=== PATIENT | female | born 1980 | race Caucasian/White ===

== ENCOUNTER 2017-07-19 00:55 | Emergency (ER) | payer OTHER ==
[~2017-07-19] VITALS: Ht 165.1 cm; Wt 127.0 kg
--- OUTSIDE RECORDS SUMMARY | ~2017-07-19 | XMS | Clinical Summary ---
Demographics + + + | Address | [address] | | | [place] [address] | + + + | Home Phone | | + + + | Preferred Language | Unknown | + + + | Marital Status | Single | + + + | Quaker Affiliation | Unknown | + + + | Race | White | + + + | Ethnic Group | Not or | + + + Author + + + | Author | [facility] | + + + | Organization | [facility] | + + + | Address | Unknown | + + + | Phone | Unavailable | + + + Support +------+ +---------+ + | Name | Relationship | Address | Phone | +------+ +---------+ + ECON | Unknown | | +------+ +---------+ + Care Team Providers + +------+ + | Care Rn Concurrent Review Name | Role | Phone | + +------+ + PP | Unavailable | + +------+ + Source Comments JESSE is fully live on both [facility] and [facility] Allergies + + + + + + | Active Allergy | Reactions | Severity | Noted | Comments | | | | | Date | | + + + + + + | Latex | | | 06/09/20 | | | | | | 11 | | + + + + + + | Hydrocodone-Acetamin | Pruritus | | 06/09/20 | | | ophen | | | 11 | | + + + + + + Current Medications No known medications Active Problems + + + | Problem | Noted Date | + + + | Osteoarthritis | 06/10/2011 | + + + | Facial swelling | 06/10/2011 | + + + Family History + + +------+ + | Medical History | Relation | Name | Comments | + + +------+ + | Additional Family | Father | | COPD/emphysema | | History | | | | + + +------+ + | Additional Family | Mother | | psoriasis vs dermatitis | | History | | | | + + +------+ + + +------+--------+ + | Relation | Name | Status | Comments | + +------+--------+ + | Father | | | | + +------+--------+ + | Mother | | | | + +------+--------+ + Social History + +-------+ +--------+------+ | Tobacco Use | Types | Packs/Day | Years | Date | | | | | Used | | + +-------+ +--------+------+ | Never Smoker | | | | | + +-------+ +--------+------+ + +---+---+---+ | Smokeless Tobacco: | | | | | Never Used | | | | + +---+---+---+ + + +---------+ + | Alcohol Use | Drinks/We | oz/Week | Comments | | | ek | | | + + +---------+ + | Yes | | | drinks 1 drink/week | + + +---------+ + + + + | Sex Assigned at | Date Recorded | | | | + + + | Not on file | | + + + Last Filed Vital Signs + + + + | Vital Sign | Reading | Time Taken | + + + + | Blood Pressure | 126/72 | 06/09/2011 9:29 AM PDT | + + + + | Pulse | 85 | 06/09/2011 9:29 AM PDT | + + + + | Temperature | - | - | + + + + | Respiratory Rate | - | - | + + + + | Oxygen Saturation | - | - | + + + + | Inhaled Oxygen | - | - | | Concentration | | | + + + + | Weight | 109.3 kg (241 lb) | 06/09/2011 9:29 AM PDT | + + + + | Height | 163.8 cm (5' 4.5") | 06/09/2011 9:29 AM PDT | + + + + | Body Mass Index | 40.73 | 06/09/2011 9:29 AM PDT | + + + + Plan of Treatment Not on file Results Not on filefrom Last 3 Months
[~2017-07-19 00:55] MED LIST: ACETAMINOPHEN325 M1 PO; DOC-Q-LACE100 MG PO; FERROUS SULFAT325 MG PO; IBUPROFEN800 MG PO; LANSOPRAZOLE30 MG PO; NORCO 5-325 TA1 EACH PO; PERCOCET 5-3251 EACH PO; PRENATAL FORMU1 EAC1 PO; PRILOSEC20 MG PO; PROMETHAZINE HC25 M1 PO; ZOFRAN4 MG PO
[2017-07-19] MEDS ORDERED: VENTOLIN HFA18 GM INH (01:20)
[2017-07-19] MEDS ORDERED: MULTI-VITAMIN1 EACH PO (01:21)
[2017-07-19] MEDS ORDERED: DICLOFENAC SODI75 MG PO (01:51)
[2017-07-19] MEDS ORDERED: ACETAMINOPHEN-1 EAC1 PO (01:51)
== END 2017-07-19 02:02 | disposition home or self-care (01) ==
LOC: ED 00:55
DX: S29.012A Strain of muscle and tendon of back wall of thorax, initial encounter (principal); K21.9 Gastro-esophageal reflux disease without esophagitis; X58.XXXA Exposure to other specified factors, initial encounter; Z88.5 Allergy status to narcotic agent; Z88.8 Allergy status to other drugs, medicaments and biological substances; Z79.899 Other long term (current) drug therapy
CPT/HCPCS: 71020; 81001; 99283

== ENCOUNTER 2018-10-30 08:04 | Emergency (ER) | payer OTHER ==
[~2018-10-30] VITALS: Ht 165.1 cm; Wt 127.0 kg
[~2018-10-30 08:04] MED LIST changes: +ACETAMINOPHEN-1 EAC1 PO; +DICLOFENAC SODI75 MG PO; +MULTI-VITAMIN1 EACH PO; +VENTOLIN HFA18 GM INH
== END 2018-10-30 09:08 | disposition home or self-care (01) ==
LOC: ED 08:04
DX: M25.511 Pain in right shoulder (principal); K21.9 Gastro-esophageal reflux disease without esophagitis; Z88.5 Allergy status to narcotic agent; Z88.8 Allergy status to other drugs, medicaments and biological substances; Z79.899 Other long term (current) drug therapy
CPT/HCPCS: 96372; 99283-25; J1885

== ENCOUNTER 2018-11-07 09:50 | Day surgery (SDC) | payer OTHER ==
[~2018-11-07] VITALS: Ht 165.1 cm; Wt 132.0 kg
[~2018-11-07 09:50] MED LIST changes: +GLIPIZIDE5 MG PO; +OMEPRAZOLE20 MG PO
[2018-11-07] MEDS ORDERED: VITAMIN D50000 UNI1 PO (10:14)
[2018-11-07] MEDS ORDERED: SENNA LAX8.6 MG PO (15:01)
[2018-11-07] MEDS ORDERED: OXYCODONE HCL5 MG PO (15:01)
[2018-11-07] MEDS ORDERED: NARCAN4 MG NAS (15:02)
[2018-11-07] MEDS ORDERED: GABAPENTIN300 MG PO (15:02)
--- NOTE | 2018-11-07 15:45 | NUR ---
11/07/18 1545 Мария Ray 1507 PT ARRIVED IN PACU SLEEPY. SLING PLACED ON R ARM BY OR STAFF. 1511 BLOOD SUGAR 174. ANESTHESIA AWARE. PT MOVING AROUND IN BED. REORIENTED TO PLACE. 1530 CRYO CUFF PLACED ON R SHOULDER. PT C/O SORE NECK ON R SIDE AND HARD TO BREATHE ON R SIDE OF ABD. SLOW DEEP BREATHS TAKEN. REASSURED PT. REPOSITIONED IN BED FOR COMFORT. PT STATES "I DID FEEL THIS WAY BEFORE SURGERY." 1545 PT RELAXED WITH NO C/O'S AT THIS TIME.
[2018-11-07] MEDS ORDERED: ZOFRAN8 MG SL (15:54)
--- NOTE | 2018-11-07 16:28 | NUR ---
PT ARRIVES TO DS RM 12 FROM RECOVERY. PT RESP EVEN AND UNLABORED ON RA, BUT PT STATES THAT SHE IS HAVING A "HARD TIME BREATHING DEEP" AND QUESTIONS IF IT IS FROM BLOCK. PT STATES SHE IS NAUSEATED AND IS MEDICATED, SEE EMAR. PT REQUESTS TO HAVE NAUSEA MEDICATION PRIOR TO PAIN MEDICATION AND RATES PAIN 6/10 STATING "NECK REALLY HURTS AND I HAVE A TENSION HEADACHE." PT PROVIDED ICED WATER AND WOULD LIKE TO WAIT ON ANYTHING TO EAT. PT SPOUSE AT BEDSIDE. CALL LIGHT WITHIN REACH.
--- NOTE | 2018-11-07 17:14 | NUR ---
PT RESTING WITH EYES CLOSED ON ARRIVAL IN ROOM. PT EASILY WAKES TO VERBAL STIMULI. PT STATES THAT HER PAIN IS 2/10 IN RIGHT SHOULDER " LONG I DON'T MOVE." PT ALSO STATES NO NAUSEA AT THIS TIME. PT ICE WATER REFILLED. DC CRITERIA EXPLAINED TO PT. PT SPOUSE AT BEDSIDE. CALL LIGHT WITHIN REACH.
--- NOTE | 2018-11-07 18:19 | NUR ---
1720: PT PROVIDED SOUP AND CRACKERS PER REQUEST. PT TOLERATES PO WELL. 1730: PT USES CALL LIGHT TO ALERT RN OF URGE TO VOID. PT SITS AT SIDE OF BED, DENIES ANY NAUSEA OR DIZZINESS. PT AMBULATES TO BATHROOM WITH STEADY GAIT. SPOUSE ASSISTS PT IN BATHROOM. PT BACK IN ROOM AND DRESSING. LARGER SLING SUPPLIED TO FIT PROPERLY. SPOUSE PULLS VEHICLE TO MAIN ENTRANCE OF HOSPITAL. PT DC'S FROM DS RM 12 VIA [facility].
--- NOTE | 2018-11-08 07:50 | OR ---
[facility] [address], [place] [address] Signed DATE OF OPERATION: 11/07/2018 SURGEON: Saritha Salinas MD PREOPERATIVE DIAGNOSIS: Partial rotator cuff tear, right shoulder. POSTOPERATIVE DIAGNOSIS: Partial rotator cuff tear, right shoulder. PROCEDURE PERFORMED: Right shoulder arthroscopy with arthroscopic rotator cuff repair. RETAIL CASHIER ASSOCIATE: Shani Polanco PA-C. Shani was present and critical for positioning, camera holding, and traction as well as closing. ANESTHESIA: General with interscalene block. BLOOD LOSS: Minimal. TOURNIQUET TIME: None. IMPLANTS: 4.75 SwiveLock. 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 She had shoulder pain and a snapping or tearing sensation in her shoulder. MRI was consistent with a partial to full-thickness rotator cuff tear. Risks, benefits, and alternatives of operative treatment were discussed with her and she elected to proceed. DESCRIPTION OF PROCEDURE: Once consent was obtained, she was taken to the operating room. After adequate anesthesia, she was placed on operating room table. All downside pressure points well padded. She was placed in a beach chair position and the arm was prepped and draped in the standard sterile fashion from nape of the neck all the way to the fingers. The Electronically Signed By: SARITHA SALINAS MD 11/08/18 0750 PATIENT NAME: KARLENE ABBOTT CARLA OPERATIVE REPORT DATE OF : 76 REPORT #: [id number] PHYSICIAN: SARITHA SALINAS MD PCP: MILES TAFOYA PAC REPORT IS CONFIDENTIAL AND NOT TO BE RELEASED WITHOUT AUTHORIZATION [facility] [address], [place] [address] Signed shoulder was injected with 15 mL 0.25% Marcaine with epinephrine as was the subacromial space. Standard posterior portal was made and the scope was introduced in the shoulder. Arthroscopic findings: Glenohumeral surfaces were intact. Biceps, biceps anchor were intact. The labrum was intact. The undersurface of the rotator cuff showed a 1 cm tear just posterior to the biceps. Standard anterior portal was made using an outside-in technique. The undersurface of the rotator cuff was then debrided of all devitalized tissue. A suture marker was then placed through the tear and the scope was withdrawn and placed in the subacromial space. The bursa was removed to allow visualization of the suture and evaluation of the tear. There was about a 90% tear. There was a small slip of tendon still intact. However, greater than 50% tear we have elected to go ahead and proceed with the repair. The tear was debrided back to a stable rim with good healthy tissue. A #2 FiberTape sutures placed in inverted mattress configuration. The suture tails were placed through a 4.75 anchor and we initially attempted to place the anchor, which is a self punching anchor, however, the bone was too hard. I then used a 5.5 punch to punch a hole and placed the anchor without trouble. The repair was noted to be quite stable, moved well with shoulder motion. Suture ends were cut. The endoscope was withdrawn. Portals were closed with 3-0 nylon. Also noted we did debride the tuberosity to allow good bleeding at the site of the repair. The wounds were dressed with ProWick dressing. She was awakened, taken to the recovery room in satisfactory condition. All sponge, needle, and instrument counts were correct. Saritha Salinas MD BA/TARYNL /[id number] Copies: ~ Electronically Signed By: SARITHA SALINAS MD 11/08/18 0750 PATIENT NAME: KARLENE ABBOTT CARLA OPERATIVE REPORT DATE OF : 76 REPORT #: [id number] PHYSICIAN: SARITHA SALINAS MD PCP: MILES TAFOYA PAC REPORT IS CONFIDENTIAL AND NOT TO BE RELEASED WITHOUT AUTHORIZATION
== END 2018-11-07 18:10 | disposition home or self-care (01) ==
LOC: DS 09:50 → OPS 09:50 → DS 10:45 → OPS 12:00
PROVIDERS: Specialist
PROC: 0LQ14ZZ Repair Right Shoulder Tendon, Percutaneous Endoscopic Approach (ICD-10-PCS; principal; 2018-11-07 12:00)
DX: M75.101 Unspecified rotator cuff tear or rupture of right shoulder, not specified as traumatic (principal); E11.9 Type 2 diabetes mellitus without complications; K21.9 Gastro-esophageal reflux disease without esophagitis; E66.01 Morbid (severe) obesity due to excess calories; Z88.5 Allergy status to narcotic agent; Z88.8 Allergy status to other drugs, medicaments and biological substances; Z79.899 Other long term (current) drug therapy; Z79.84 Long term (current) use of oral hypoglycemic drugs; Z68.42 Body mass index [BMI] 45.0-49.9, adult
CPT/HCPCS: 01630; 64415; 76942; C1713; J0330; J0690; J1100; J1885; J2250; J2405; J2704; J2795; J3010; J7120

== ENCOUNTER 2024-11-09 15:23 | Emergency (ER) | payer OTHER ==
[~2024-11-09] VITALS: Ht 165.1 cm; Wt 90.0 kg
[~2024-11-09 15:23] MED LIST changes: +GABAPENTIN300 MG PO; +NARCAN4 MG NAS; +OXYCODONE HCL5 MG PO; +SENNA LAX8.6 MG PO; +VITAMIN D50000 UNI1 PO; +ZOFRAN8 MG SL
[2024-11-09] MEDS ORDERED: OXYCODONE/ACETAMINOPHEN 1 TAB HOME.PACK PO ONE (21:15)
[2024-11-09] MEDS ORDERED: PERCOCET 5-3251 EACH PO (21:15)
[2024-11-09 21:34] VITALS: BP 142/86
== END 2024-11-09 21:35 | disposition home or self-care (01) ==
LOC: ED 15:23
DX: S93.402A Sprain of unspecified ligament of left ankle, initial encounter (principal); X50.1XXA Overexertion from prolonged static or awkward postures, initial encounter; K21.9 Gastro-esophageal reflux disease without esophagitis; Z79.84 Long term (current) use of oral hypoglycemic drugs; Z79.899 Other long term (current) drug therapy; Z88.5 Allergy status to narcotic agent; Z88.1 Allergy status to other antibiotic agents
CPT/HCPCS: 73610; 99283